=== PATIENT | male | born 1975 | race Caucasian/White ===

== ENCOUNTER → 2025-01-29 08:17 | Outpatient (REF) | payer OTHER, SELFPAY | LOC: HWRCS 08:17 | PROVIDERS: ATTENDING PHYSICIAN Nuclear Medicine Nuclear Cardiology; FAMILY PHYSICIAN Family Medicine | DX: I10 Essential (primary) hypertension (principal); E78.2 Mixed hyperlipidemia; R00.1 Bradycardia, unspecified; R94.31 Abnormal electrocardiogram [ECG] [EKG]; E78.019 Familial hypercholesterolemia, unspecified | CPT/HCPCS: 93306 ==